=== PATIENT | male | born 1995 | race African-American/Black ===

== ENCOUNTER 2019-03-28 22:19 | Emergency (ER) | payer SELFPAY ==
[~2019-03-28] VITALS: Ht 180.3 cm; Wt 136.9 kg
[2019-03-28] MEDS ORDERED: ALBUTEROL SULFATE 2.5 MG/3 ML ONE (22:42)
[2019-03-28] MEDS ORDERED: ALBUTEROL SULFATE 2.5 MG/3 ML NPPB ONE (23:00)
--- NOTE | 2019-03-28 23:01 | NUR ---
pt to xray
[2019-03-28 23:37] VITALS: BP 141/84
--- NOTE | 2019-03-28 23:48 | NUR ---
ANTHONY RN: Patient/Caregiver given discharge instructions and they have confirmed that they understand the instructions. Patient ambulatory with steady gait.
== END 2019-03-28 23:50 | disposition home or self-care (01) ==
LOC: ED 23:10
DX: J45.909 Unspecified asthma, uncomplicated (principal); F17.200 Nicotine dependence, unspecified, uncomplicated
CPT/HCPCS: 71046; 93005; 94640; 99283; J7613